=== PATIENT | female | born 2000 | race Caucasian/White ===

== ENCOUNTER 2024-03-19 15:06 | Emergency (ER) | payer BC, SELFPAY ==
[2024-03-19 15:20] VITALS: BP 121/80
[2024-03-19 15:27] LABS: Glucose - Point of Care 123 mg/dl (70-99)
[2024-03-19 15:46] LABS: % Basophils 0.7 % (0-2); % Eosinophils 0.3 % (0-6); % Immature Granulocytes 0.2 % (0-0.5); % Lymphocytes 25.9 % (20.5-51.1); % Monocytes 6.6 % (1.7-9.3); % Neutrophils 66.3 % (42.2-75.2); Absolute Lymphocytes 1.5 10^3/uL (1.2-3.4); Absolute Monocytes 0.4 10^3/uL (0.1-0.6); Absolute Neutrophils 3.8 10^3/uL (1.4-6.5); Hematocrit 42.3 % (37.0-47.0); Mean Corp Hgb Conc. 35.5 g/dL (33.0-37.0); Mean Corpuscular Hgb 30.1 pg (27.0-31.0); Mean Corpuscular Volume 84.8 fL (81.0-99.0); Mean Platelet Volume 11.2 fL (7.4-10.4); Nucleated Red Blood Cells % 0 %; Platelet Count 257 10^3/uL (130-400); Red Blood Cell Count 4.99 10^6/uL (4.20-5.40); Red Cell Dist. Width 11.7 % (11.5-14.5); White Blood Cell Count 5.7 10^3/uL (4.8-10.8)
[2024-03-19 15:57] LABS: HCG, Serum Qualitative Screen Negative
[2024-03-19 16:02] LABS: ALT (SGPT) 11 U/L (0-35); AST (SGOT) 21 U/L (14-36); Alkaline Phosphatase 78 U/L (38-126); Blood Urea Nitrogen 10 mg/dl (7-17); Calcium 9.8 mg/dl (8.4-10.2); Carbon Dioxide 24 mmol/L (22-30); Chloride 101 mmol/L (98-107); Glucose 142 mg/dl (70-99); Potassium 4.6 mmol/L (3.5-5.1); Sodium 137 mmol/L (135-145); Total Bilirubin 0.9 mg/dl (0.2-1.3); eGFR > 60.00
[2024-03-19 16:05] LABS: Urine Albumin Negative (Neg - Trace); Urine Bilirubin Negative (Negative); Urine Character Clear (Clear); Urine Color Yellow; Urine Glucose Negative (Negative); Urine Ketone 3+ (Negative); Urine Leukocyte Negative (Negative); Urine Nitrite Negative (Negative); Urine Occult Blood Negative (Negative); Urine Specific Gravity 1.015 (<1.030); Urine Urobilinogen Negative (Neg - 1+)
--- NOTE | 2024-03-19 16:32 | ED.GENMED ---
History of Present Illness
General
Chief Complaint: Blood Sugar Problem
Time Seen by Provider: 03/19/24 16:32
History of Present Illness
History of Present Illness:
HPI: The patient presents due to a general unwell feeling including some chest discomfort and palpitations. She has IDDM and has an insulin pump known to wireline supervisor at [facility] in [place]. She noted that she had ketones in her urine and
noted a fruity smelling breath. Her doctors at [facility] encouraged her to go to the emergency department. However she has been euglycemic. She has had some decrease in oral intake.
EXAM:
GENERAL: Well appearing in no distress
HEENT: Moist oral mucosa
CARDIOVASCULAR: No murmurs, tachycardic heart rate, regular rhythm, No chest wall tenderness
PULMONARY: No respiratory distress, breath sounds are clear and equal
ABDOMEN: Soft with no peritoneal signs, no tenderness
NEUROLOGIC: Excellent strength all extremities, no coordination deficits
PSYCHIATRIC: Appropriate mental status, normal insight and judgement
EXTREMITIES: Nontender, no edema, moves all extremities equally
SKIN: No rash, no lesions
TIME OF INITIAL ENCOUNTER: 4:30 PM
NUMBER AND COMPLEXITY OF PROBLEMS ADDRESSED AT THE ENCOUNTER
� Chronic conditions affecting care: IDDM on insulin pump
� Acute Exacerbation and/or Progression of Chronic Illness: This is an acute problem
� Differential Diagnosis includes: DKA, euglycemic DKA, HHNK, ketonuria without DKA
AMOUNT AND/OR COMPLEXITY OF DATA TO BE REVIEWED AND ANALYZED
� I performed an independent evaluation of and my interpretation is:
EKG: She has remained sinus on the monitor with heart rate around 100 and overall has improved heart rate after fluids
CT:
X-rays:
Laboratory Studies: CBC unremarkable, pH 7.37, bicarb normal, hCG negative, renal function normal, glucose 142, she does have ketones in the urine 3+
Other:
� Review of other/old records: Bicarb is normal however she does have 3+ ketones. Glucose is 142
� Clinical information was obtained by an independent historian: I spoke with mother at bedside
� Prescriptions/Medications Considered but not given:
� Further testing considered but not performed:
RISK OF COMPLICATIONS AND/OR MORBIDITY OR MORTALITY OF PATIENT MANAGEMENT
� Social determinants of health affecting care: Lives at home, wears an insulin pump
� Discussion with other providers:
� Escalation of care including admission/observation vs risk of discharge considered: The patient reports no malfunction with the pump. She does have ketonuria. Therefore she is given IV fluids. She does report some decreased
p.o. intake recently. There is no clear evidence for DKA based on initial workup. While in ED with IV fluids, the patient's blood sugar did drop into the 40s. She was given food. She tolerated the food well. Overall there is no clear evidence
for DKA as her bicarb is normal and her pH is 7.37. She does have a slightly elevated beta hydroxybutyrate. I recommend that she follows up with her wireline supervisor at [facility] tomorrow. On reassessment at 7 PM, she overall feels improved and no
longer has any chest discomfort/palpitations.
Past History
Past History
ED Past Medical History: IDDM
ED Past Surgical History: Orthopedic
Social History
Tobacco: Non-smoker
Alcohol: None
Drug: None
Personal: Single
Living: with roommate
Employment: Student
Phy Exam
Physical Exam
Physical Exam:
See HPI
Course
Orders/Labs/Results
Orders:
Orders
03/19/24 15:26
Test Result ONCE
03/19/24 15:31
Complete Blood Count/With Diff Urgent
Comprehensive Metabolic Panel Urgent
HCG, Serum Qualitative Screen Urgent
03/19/24 15:33
Urinalysis Reflex To Culture Urgent
Date Specimen was Collected: 03/19/24
Time Specimen was Collected: 15:26
03/19/24 16:32
0.9% Sodium Chloride 1000 ml [Nss] 1,000 ml IV BOLUS
03/19/24 16:43
0.9% Sodium Chloride 1000 ml [Nss] 1,000 ml IV BOLUS
03/19/24 16:48
Acetone [B-Hydroxybutyrate] Urgent
Venous Blood Gas Urgent
%Oxygen/Room Air: RA
Abnormal Lab Results
03/19/24 03/19/24 03/19/24
15:25 15:31 15:33
MPV 11.2 H fL
(7.4-10.4)
VBG pO2
Glucose 142 H mg/dl
(70-99)
Urine Ketones 3+ A
(Negative)
B-Hydroxybutyrate
POC Glucose 123 H mg/dl
(70-99)
03/19/24
16:48
MPV
VBG pO2 53 H mmHg
(30-50)
Glucose
Urine Ketones
B-Hydroxybutyrate 1.49 H mmol/L
(0.02-0.27)
POC Glucose
03/19/24 15:31
03/19/24 15:31
Vital Signs
Initial and Last Documented VS:
Initial Vital Signs
Temp Pulse Resp BP Pulse Ox
98.0 F 115 18 121/80 100
03/19/24 15:20 03/19/24 15:20 03/19/24 15:20 03/19/24 15:20 03/19/24 15:20
Last Documented Vital Signs
Temp Pulse Resp BP Pulse Ox
98.0 F 107 20 98/71 100
03/19/24 15:20 03/19/24 17:30 03/19/24 17:30 03/19/24 17:00 03/19/24 17:30
*Critical Care Note
Total Time (30-74mins, 75-104mins- exclusive of procedures): Not Applicable
ED Attending Note
-
Portions of this chart may have been created with voice recognition software.� Occasional wrong word or��sound alike� substitutions may have occurred due to the inherent limitations of voice recognition software.
Discharge Plan
Departure
Patient Disposition: Home (Routine Discharge)
Date of Disposition: 03/19/24
Time of Disposition: 19:06
Patient with high blood pressure during this ER visit?: Yes
Discharge Problem:
Ketonuria
Instructions: Diabetes Type 1, Adult (DC)
Prescriptions:
No Action
insulin lispro [Humalog U-100 Insulin] 100 UNIT/ML solution
0 unit SC .SLIDING SCALE AC
Patient Comments:
based on how much carb patient gets (1 unit=10carbs), every meal
fluoxetine 20 MG capsule
40 mg PO DAILY
bupropion HCl 150 MG tablet extended release 24 hr
150 mg PO DAILY
drospirenone-ethinyl estradiol 1 EACH tablet
1 ea PO DAILY@1700
insulin degludec [Tresiba FlexTouch U-100] 100 UNIT/ML insulin pen
23 unit SQ HS
insulin aspart U-100 [Novolog FlexPen U-100 Insulin] 300 UNITS/3 ML insulin pen
5 units SC AC Qty: 5 0RF
ondansetron 4 mg tablet,disintegrating
4 mg PO Q8H PRN (Reason: VOMITING) 3 Days Qty: 5 0RF
Referrals:
Stew Keita MD [Family Provider] -
Activity Restrictions/Additional Instructions:
Your glucose initially was 142. You have 3+ ketones in urine, but your bicarb level is nomral at 24. Your pH is 7.37 (normal). Your beta-hydroxybutyrate is somewhat high at 1.49 (top normal 0.27), but overall, this is not consistent w/ DKA. We
gave you 2 liters of IV fluid. Call your wireline supervisor tomorrow.
Interventions
Interventions:
*Risk Screen - Suicide Last Done: 03/19/24 15:24
*General Assessment Last Done: 03/19/24 15:24
*Neglect/Abuse Screening Last Done: 03/19/24 15:24
ED- Fall Risk Assessment Last Done: 03/19/24 16:58
ED- Neurological Assessment Last Done: 03/19/24 16:58
Discharge Date and Time
Print Language: MALTESE
[2024-03-19 16:47] VITALS: BP 105/73
[2024-03-19] MEDS: NSS 1000 IV ×2 (16:51)
[2024-03-19 16:55] LABS: Venous Blood Gas B.E. 0.7 mmol/L (-4 to +4); Venous Blood Gas HCO3 26.6 mmol/L (22-27); Venous Blood Gas O2 Sat % 87.6 %; Venous Blood Gas pCO2 46 mmHg (35-48); Venous Blood Gas pH 7.37 (7.32-7.43); Venous Blood Gas pO2 53 mmHg (30-50)
[2024-03-19 17:00] VITALS: BP 98/71
[2024-03-19 17:30] LABS: B-Hydroxybutyrate 1.49 mmol/L (0.02-0.27)
[2024-03-19 18:00] VITALS: BP 112/78
== END 2024-03-19 19:54 | disposition home or self-care (01) ==
LOC: EMR 15:06
PROVIDERS: Emergency Medicine; EMERGENCY PHYSICIAN Emergency Medicine; FAMILY PHYSICIAN Family Medicine
DX: R07.89 Other chest pain (principal); R00.2 Palpitations; E11.69 Type 2 diabetes mellitus with other specified complication; R82.4 Acetonuria; R03.0 Elevated blood-pressure reading, without diagnosis of hypertension; Z79.4 Long term (current) use of insulin; Z96.41 Presence of insulin pump (external) (internal)
CPT/HCPCS: 99284; 96360; 80053; 81003; 82010; 82805; 82962; 84703; 85025

== ENCOUNTER 2024-07-06 16:15 | Emergency (ER) | payer BC, SELFPAY ==
[2024-07-06 16:20] VITALS: BP 144/92
[2024-07-06 16:26] LABS: Glucose - Point of Care 101 mg/dl (70-99)
[2024-07-06 17:05] LABS: Venous Blood Gas B.E. 3.6 mmol/L (-4 to +4); Venous Blood Gas HCO3 30.9 mmol/L (22-27); Venous Blood Gas O2 Sat % 69.1 %; Venous Blood Gas pCO2 56 mmHg (35-48); Venous Blood Gas pH 7.35 (7.32-7.43); Venous Blood Gas pO2 41 mmHg (30-50)
[2024-07-06 17:07] LABS: % Basophils 0.7 % (0-2); % Eosinophils 1.2 % (0-6); % Immature Granulocytes 0.2 % (0-0.5); % Lymphocytes 41.2 % (20.5-51.1); % Monocytes 7.6 % (1.7-9.3); % Neutrophils 49.1 % (42.2-75.2); Absolute Eosinophils 0.1 10^3/uL (0-0.7); Absolute Lymphocytes 2.5 10^3/uL (1.2-3.4); Absolute Monocytes 0.5 10^3/uL (0.1-0.6); Hematocrit 43.9 % (37.0-47.0); Hemoglobin 15.2 g/dL (12.0-16.0); Mean Corp Hgb Conc. 34.6 g/dL (33.0-37.0); Mean Corpuscular Hgb 30.9 pg (27.0-31.0); Mean Corpuscular Volume 89.2 fL (81.0-99.0); Mean Platelet Volume 11.7 fL (7.4-10.4); Nucleated Red Blood Cells % 0 %; Platelet Count 222 10^3/uL (130-400); Red Blood Cell Count 4.92 10^6/uL (4.20-5.40); Red Cell Dist. Width 11.8 % (11.5-14.5)
[2024-07-06 17:09] LABS: Urine Albumin Negative (Neg - Trace); Urine Bilirubin Negative (Negative); Urine Character Clear (Clear); Urine Color Yellow; Urine Glucose Negative (Negative); Urine Ketone Negative (Negative); Urine Leukocyte Trace (Negative); Urine Nitrite Negative (Negative); Urine Occult Blood Negative (Negative); Urine Urobilinogen Negative (Neg - 1+)
[2024-07-06 17:13] LABS: Urine Red Blood Cell 0-2 /HPF (0-2); Urine White Cell 0-2 /HPF (0-5)
[2024-07-06 17:15] LABS: HCG, Urine Qualitative Screen Negative
[2024-07-06 17:20] LABS: ALT (SGPT) 14 U/L (0-35); AST (SGOT) 19 U/L (14-36); Albumin 4.9 g/dl (3.5-5.0); Alkaline Phosphatase 76 U/L (38-126); Blood Urea Nitrogen 15 mg/dl (7-17); Calcium 9.6 mg/dl (8.4-10.2); Carbon Dioxide 27 mmol/L (22-30); Chloride 102 mmol/L (98-107); Glucose 173 mg/dl (70-99); Potassium 3.8 mmol/L (3.5-5.1); Sodium 143 mmol/L (135-145); Total Bilirubin 0.4 mg/dl (0.2-1.3); eGFR > 60.00
--- NOTE | 2024-07-06 17:22 | ED.GENMED ---
History of Present Illness
General
Chief Complaint: Dizziness
Source: patient and family
Exam Limitations: none
Time Seen by Provider: 07/06/24 17:05
Nursing documentation reviewed up to this point in time: agreed with
History of Present Illness
History of Present Illness:
23-year-old female presents emergency ferment due to dizziness and nausea. She denies any pain. She had some nausea. She was prescribed Zofran by her primary care doctor. She notes that she was around someone who has mono. Her primary care
prescribed Zofran in a telehealth visit.
Past History
Past History
ED Past Medical History: IDDM
ED Past Surgical History: Orthopedic
Social History
Tobacco: Non-smoker
Alcohol: None
Drug: None
Personal: Single
Living: with roommate
Employment: Student
Review of Systems
Review of Systems
Allergies reviewed?: Yes
All Other Systems: Not applicable
Constitutional: Reports no symptoms
EENT: Reports no symptoms
Respiratory: Reports no symptoms
Cardiac: Reports no symptoms
ABD/GI: Reports nausea
: Reports no symptoms
Musculoskeletal: Reports no symptoms
Skin: Reports no symptoms
Neurological: Reports dizzy
Endocrine: Reports no symptoms
Hematologic/Lymphatic: Reports no symptoms
Psychiatric: Reports no symptoms
Phy Exam
Physical Exam
Physical Exam:
Physical Exam
General: no apparent distress, not acutely ill
Neck: supple. no meningeal signs. normal posterior pharynx
Heart: s1/s2 regular rate and rhythm, no murmur. equal radial
pulses.
HEENT: Pupils equal round reactive to light, EOMI
Lungs: no acute respiratory distress. clear bilaterally
Abdomen: normal bowel sounds. not tender. no CVAT
Neuro: alert and oriented. no focal neurological deficits cranial nerves II through XII intact
Skin: no rash
Psychiatric: well kept. interactive and cooperative
Extremities: no edema. no calf tenderness. negative homans. good distal pulses
Course
Orders/Labs/Results
Orders:
Orders
07/06/24 16:34
Test Result ONCE
07/06/24 16:43
Acetone [B-Hydroxybutyrate] Urgent
Complete Blood Count/With Diff Urgent
Comprehensive Metabolic Panel Urgent
HCG, Urine Qualitative Screen Urgent
Date Specimen was Collected: 07/06/24
Time Specimen was Collected: 16:34
Urinalysis Reflex To Culture Urgent
Date Specimen was Collected: 07/06/24
Time Specimen was Collected: 16:34
Urine Microscopic Reflex Cult Urgent
Venous Blood Gas Urgent
%Oxygen/Room Air: room air
07/06/24 16:47
Monotest Urgent
07/06/24 17:22
Add On- LAB Urgent
Tests Added?: urine hcg qual
07/06/24 19:16
Ondansetron Injectable [Zofran] 4 mg IV NOW STA
Abnormal Lab Results
07/06/24 07/06/24
16:23 16:43
MPV 11.7 H fL
(7.4-10.4)
VBG pCO2 56 H mmHg
(35-48)
VBG HCO3 30.9 H mmol/L
(22-27)
Glucose 173 H mg/dl
(70-99)
Leukocyte Esterase Rfl Trace A
(Negative)
POC Glucose 101 H mg/dl
(70-99)
07/06/24 16:43
07/06/24 16:43
Vital Signs
Initial and Last Documented VS:
Initial Vital Signs
Temp Pulse Resp BP Pulse Ox
99.9 F 87 18 144/92 100
07/06/24 16:20 07/06/24 16:20 07/06/24 16:20 07/06/24 16:20 07/06/24 16:20
Last Documented Vital Signs
Temp Pulse Resp BP Pulse Ox
99.9 F 77 16 111/84 100
07/06/24 16:20 07/06/24 19:15 07/06/24 19:15 07/06/24 19:15 07/06/24 19:15
MDM/Problems Addressed
Differential Diagnosis Includes:
Viral syndrome, DKA
MDM/Problems Addressed:
23-year-old female with nausea, dizziness. Do not suspect TIA or CVA. Do not suspect intracranial mass. No neurologic deficits. Patient stable for discharge.
Chronic conditions affecting care: DM
*Pulse Oximetry
Patient hypoxic: no
*Quality Systems Engineer Interpretation
Rate: normal
Interpretation: normal
Heart Rate: 88
Rhythm: sinus
*Critical Care Note
Total Time (30-74mins, 75-104mins- exclusive of procedures): Not Applicable
Patient Management
Social determinants of health affecting care: Living situation and Strong social support
Escalation/DeEscalation of care consider admission/obs:
Admit not indicated
ED Attending Note
-
Portions of this chart may have been created with voice recognition software.� Occasional wrong word or��sound alike� substitutions may have occurred due to the inherent limitations of voice recognition software.
Discharge Plan
Departure
Patient Disposition: Home (Routine Discharge)
Date of Disposition: 07/06/24
Time of Disposition: 19:18
Patient with high blood pressure during this ER visit?: Yes
Condition: Good
Discharge Problem:
Dizziness, IDDM (insulin dependent diabetes mellitus), Nausea
Instructions: BLOOD PRESSURE, Dizziness, Nausea and vomiting in adults
Prescriptions:
No Action
insulin lispro [Humalog U-100 Insulin] 100 UNIT/ML solution
0 unit SC .SLIDING SCALE AC
Patient Comments:
based on how much carb patient gets (1 unit=10carbs), every meal
fluoxetine 20 MG capsule
40 mg PO DAILY
bupropion HCl 150 MG tablet extended release 24 hr
150 mg PO DAILY
drospirenone-ethinyl estradiol 1 EACH tablet
1 ea PO DAILY@1700
insulin degludec [Tresiba FlexTouch U-100] 100 UNIT/ML insulin pen
23 unit SQ HS
insulin aspart U-100 [Novolog FlexPen U-100 Insulin] 300 UNITS/3 ML insulin pen
5 units SC AC Qty: 5 0RF
ondansetron 4 mg tablet,disintegrating
4 mg PO Q8H PRN (Reason: VOMITING) 3 Days Qty: 5 0RF
Referrals:
Stew Keita MD [Family Provider] - Call in 1-3 days for appt
Interventions
Interventions:
*Risk Screen - Suicide Last Done: 07/06/24 16:20
*General Assessment Last Done: 07/06/24 16:20
*Neglect/Abuse Screening Last Done: 07/06/24 16:20
ED- Fall Risk Assessment Last Done: 07/06/24 16:34
ED- Neurological Assessment Last Done: 07/06/24 16:34
ED Swallowing Screen Last Done: 07/06/24 16:34
Discharge Date and Time
Print Language: SCOTTISH
[2024-07-06 17:24] LABS: Monotest Negative (Negative)
[2024-07-06 17:56] LABS: B-Hydroxybutyrate 0.17 mmol/L (0.02-0.27)
[2024-07-06 19:15] VITALS: BP 111/84
[2024-07-06] MEDS: ZOFRAN 4 MG IV (19:26)
== END 2024-07-06 19:40 | disposition home or self-care (01) ==
LOC: EMR 16:15
PROVIDERS: Emergency Medicine; EMERGENCY PHYSICIAN Emergency Medicine; FAMILY PHYSICIAN Family Medicine
DX: R42 Dizziness and giddiness (principal); E11.9 Type 2 diabetes mellitus without complications; R11.0 Nausea; Z79.4 Long term (current) use of insulin
CPT/HCPCS: 99283; 80053; 81003; 81015; 81025; 82010; 82805; 82962; 85025; 86308

== ENCOUNTER 2024-10-26 17:01 | Emergency (ER) | payer BC, SELFPAY ==
[2024-10-26 17:03] VITALS: BP 125/83
[2024-10-26 17:13] VITALS: BP 115/73
[2024-10-26 17:21] VITALS: BP 115/73; BMI 20.6
[2024-10-26] MEDS: NSS 1000 IV (17:21)
--- NOTE | 2024-10-26 17:25 | ED.GENMED ---
History of Present Illness
General
Chief Complaint: Blood Sugar Problem
Source: patient
Exam Limitations: none
Time Seen by Provider: 10/26/24 17:07
Nursing documentation reviewed up to this point in time: agreed with
History of Present Illness
History of Present Illness:
24-year-old female presenting to the emergency department today with concerns of elevated blood sugars at home. Claims have some fatigue. She uses an insulin pump and thinks it may have been malfunctioning. She did reset it.
Past History
Past History
ED Past Medical History: IDDM
ED Past Surgical History: Orthopedic
Social History
Tobacco: Non-smoker
Alcohol: None
Drug: None
Personal: Single
Living: with roommate
Employment: Student
Review of Systems
Review of Systems
Allergies reviewed?: Yes
All Other Systems: ROS reviewed and negative except as documented in HPI and ROS
Phy Exam
Physical Exam
Physical Exam:
GENERAL: Alert , in no apparent distress
EYE: pupils equal and reactive
NECK: Supple, no significant adenopathy.
ENT: o/p clr, mmm.
CARDIAC: Regular rate and rhythm .
LUNGS: Clear breath sounds bilaterally, no acute respiratory distress, no wheezes/rales/rhonchi
ABDOMEN: Soft, without focal tenderness, no r/g, no cvat
NEUROLOGICAL: Alert and oriented, no focal neuro deficits
SKIN: Warm and dry, skin intact.
MUSCULOSKELETAL: No edema, well perfused.
PSYCH: Normal and appropriate interaction.
Course
Orders/Labs/Results
Orders:
Orders
10/26/24 17:11
0.9% Sodium Chloride 1000 ml [Nss] 1,000 ml IV BOLUS
Test Result ONCE
10/26/24 17:23
Beta Hcg Serum Qualitative Screen [HCG, Serum Qualitative Screen] Urgent
Complete Blood Count/With Diff Urgent
Comprehensive Metabolic Panel Urgent
Urinalysis Reflex To Culture Urgent
Date Specimen was Collected: 10/26/24
Time Specimen was Collected: 17:20
Urine Microscopic Reflex Cult Urgent
Venous Blood Gas Urgent
%Oxygen/Room Air: 99
Urine Culture Urgent
LUCIUS Source: U
Specimen Description:
Date Specimen was Collected: 10/26/24
Time Specimen was Collected: 17:20
Abnormal Lab Results
10/26/24 10/26/24
17:23 20:03
MPV 11.1 H fL
(7.4-10.4)
VBG pO2 66 H mmHg
(30-50)
BUN 23 H mg/dl
(7-17)
Glucose 270 H mg/dl
(70-99)
Urine Ketones 2+ A
(Negative)
Ur Occult Blood Reflex 2+ A
(Negative)
Leukocyte Esterase Rfl 1+ A
(Negative)
Urine RBC 3-6 A /HPF
(0-2)
Urine Bacteria (Reflex) Few A
(Negative)
Urine Glucose 4+ A
(Negative)
Urine Albumin (Reflex) 1+ A
(Neg - Trace)
POC Glucose 145 H mg/dl
(70-99)
10/26/24 17:23
10/26/24 17:23
Vital Signs
Initial and Last Documented VS:
Initial Vital Signs
Temp Pulse Resp BP Pulse Ox
98.4 F 115 18 125/83 98
10/26/24 17:03 10/26/24 17:03 10/26/24 17:03 10/26/24 17:03 10/26/24 17:03
Last Documented Vital Signs
Temp Pulse Resp BP Pulse Ox
98.5 F 92 17 115/73 100
10/26/24 17:21 10/26/24 19:00 10/26/24 19:00 10/26/24 17:21 10/26/24 19:00
MDM/Problems Addressed
MDM/Problems Addressed:
24-year-old female presenting to the emergency department today with concerns of elevated blood sugars in the 400s. She is an insulin-dependent diabetic and has an insulin pump. Did have some ketones in her urine at home. On arrival she was
tachycardic but started on fluids. Heart rate was improving here. Labs without acidosis on VBG no anion gap normal bicarb. Sugar level in the 200s on BMP no evidence of DKA patient with improving symptoms after fluids stable for outpatient
management return precautions given.
*Critical Care Note
Total Time (30-74mins, 75-104mins- exclusive of procedures): Not Applicable
ED Attending Note
-
Portions of this chart may have been created with voice recognition software.� Occasional wrong word or��sound alike� substitutions may have occurred due to the inherent limitations of voice recognition software.
Discharge Plan
Departure
Patient Disposition: Home (Routine Discharge)
Date of Disposition: 10/26/24
Time of Disposition: 20:12
Patient with high blood pressure during this ER visit?: No
Condition: Good
Covid-19: Not Applicable
Discharge Problem:
Acute hyperglycemia
Instructions: Diabetes Type 1, Adult (DC)
Prescriptions:
No Action
insulin lispro [Humalog U-100 Insulin] 100 UNIT/ML solution
0 unit SC .SLIDING SCALE AC
Patient Comments:
based on how much carb patient gets (1 unit=10carbs), every meal
fluoxetine 20 MG capsule
40 mg PO DAILY
bupropion HCl 150 MG tablet extended release 24 hr
150 mg PO DAILY
drospirenone-ethinyl estradiol 1 EACH tablet
1 ea PO DAILY@1700
insulin degludec [Tresiba FlexTouch U-100] 100 UNIT/ML insulin pen
23 unit SQ HS
insulin aspart U-100 [Novolog FlexPen U-100 Insulin] 300 UNITS/3 ML insulin pen
5 units SC AC Qty: 5 0RF
ondansetron 4 mg tablet,disintegrating
4 mg PO Q8H PRN (Reason: VOMITING) 3 Days Qty: 5 0RF
Referrals:
Stew Keita MD [Family Provider] -
Activity Restrictions/Additional Instructions:
You came to the emergency department today with concerns of elevated blood sugar level. Please keep a close eye on your sugar level at home. Return for any worsening, new or concerning symptoms.
Interventions
Interventions:
*Risk Screen - Suicide Last Done: 10/26/24 17:04
*General Assessment Last Done: 10/26/24 17:04
*Neglect/Abuse Screening Last Done: 10/26/24 17:04
*ED- Fall Risk Assessment Last Done: 10/26/24 17:21
*ED COVID-19 Vaccine History Last Done: 10/26/24 17:04
ED- Neurological Assessment Last Done: 10/26/24 17:21
Discharge Date and Time
Print Language: LAO
[2024-10-26 17:32] LABS: % Basophils 0.6 % (0-2); % Eosinophils 0.7 % (0-6); % Immature Granulocytes 0.3 % (0-0.5); % Lymphocytes 22.1 % (20.5-51.1); % Monocytes 5.3 % (1.7-9.3); Absolute Eosinophils 0.1 10^3/uL (0-0.7); Absolute Lymphocytes 1.5 10^3/uL (1.2-3.4); Absolute Monocytes 0.4 10^3/uL (0.1-0.6); Absolute Neutrophils 4.9 10^3/uL (1.4-6.5); Hematocrit 42.9 % (37.0-47.0); Hemoglobin 14.9 g/dL (12.0-16.0); Mean Corp Hgb Conc. 34.7 g/dL (33.0-37.0); Mean Corpuscular Hgb 30.9 pg (27.0-31.0); Mean Platelet Volume 11.1 fL (7.4-10.4); Nucleated Red Blood Cells % 0 %; Platelet Count 220 10^3/uL (130-400); Red Blood Cell Count 4.82 10^6/uL (4.20-5.40); Red Cell Dist. Width 11.9 % (11.5-14.5); Venous Blood Gas B.E. -0.3 mmol/L (-4 to +4); Venous Blood Gas HCO3 25.9 mmol/L (22-27); Venous Blood Gas O2 Sat % 93.8 %; Venous Blood Gas pCO2 47 mmHg (35-48); Venous Blood Gas pH 7.35 (7.32-7.43); Venous Blood Gas pO2 66 mmHg (30-50); White Blood Cell Count 6.8 10^3/uL (4.8-10.8)
[2024-10-26 17:51] LABS: HCG, Serum Qualitative Screen Negative
[2024-10-26 17:54] LABS: ALT (SGPT) 16 U/L (0-35); AST (SGOT) 19 U/L (14-36); Albumin 4.4 g/dl (3.5-5.0); Alkaline Phosphatase 62 U/L (38-126); Blood Urea Nitrogen 23 mg/dl (7-17); Calcium 9.8 mg/dl (8.4-10.2); Carbon Dioxide 25 mmol/L (22-30); Chloride 102 mmol/L (98-107); Estimated Creatinine Clearance 124 ml/min; Glucose 270 mg/dl (70-99); Potassium 4.3 mmol/L (3.5-5.1); Sodium 138 mmol/L (135-145); Total Bilirubin 0.9 mg/dl (0.2-1.3); Total Protein 7.4 g/dl (6.3-8.2); Urine Albumin 1+ (Neg - Trace); Urine Bilirubin Negative (Negative); Urine Character Clear (Clear); Urine Color Yellow; Urine Glucose 4+ (Negative); Urine Ketone 2+ (Negative); Urine Leukocyte 1+ (Negative); Urine Nitrite Negative (Negative); Urine Occult Blood 2+ (Negative); Urine Urobilinogen Negative (Neg - 1+); eGFR > 60.00
[2024-10-26 18:17] LABS: Urine Squamous Cell >30 /LPF (Few)
[2024-10-26 18:20] LABS: Urine Bacteria Few (Negative)
[2024-10-26 20:05] LABS: Glucose - Point of Care 145 mg/dl (70-99)
== END 2024-10-26 20:20 | disposition home or self-care (01) ==
LOC: EMR 17:01
PROVIDERS: Physician Assistant; EMERGENCY PHYSICIAN Emergency Medicine; FAMILY PHYSICIAN Family Medicine
DX: E11.65 Type 2 diabetes mellitus with hyperglycemia (principal); R00.0 Tachycardia, unspecified; Z79.4 Long term (current) use of insulin; Z96.41 Presence of insulin pump (external) (internal); Z87.820 Personal history of traumatic brain injury
CPT/HCPCS: 99284; 96360; 80053; 81003; 81015; 82805; 82962; 84703; 85025; 87086